=== PATIENT | female | born 1950 | race Caucasian/White ===

== ENCOUNTER → 2017-10-06 | Outpatient (CLI) | payer OTHER | LOC: BRMIMAGING 13:02 → EDBD 13:40 | PROVIDERS: ATTEND Family Medicine | DX: Z12.31 Encounter for screening mammogram for malignant neoplasm of breast (principal); Z80.3 Family history of malignant neoplasm of breast ==

== ENCOUNTER → 2017-12-20 | Outpatient (CLI) | payer OTHER | LOC: BRMIMAGING 15:22 | PROVIDERS: ATTEND Hospitalist | DX: I51.7 Cardiomegaly (principal); J45.901 Unspecified asthma with (acute) exacerbation | CPT/HCPCS: 71046-PO ==